=== PATIENT | female | born 1995 | race Caucasian/White ===

== ENCOUNTER 2018-03-19 17:42 | Emergency (ER) | payer BC, OTHER ==
[~2018-03-19] VITALS: Ht 167.6 cm; Wt 69.4 kg
[2018-03-19] MEDS ORDERED: LIDOCAINE 1% INJ 20 ML 20 ML VIAL ONE (17:45)
--- NOTE | 2018-03-19 18:12 | ED Upper Extremity ---
General Chief Complaint: Laceration Stated Complaint: L HAND LACERATION BETWEEN THUMB AND INDEX FINGER Nursing Triage Note: PT HAS LAC TO LEFT HAND FROM ZIP TIE. Nursing Sepsis Screen: No Definite Risk History of Present Illness Date Seen by Provider: Mar 19, 2018 Time Seen by Provider: 17:45 Initial Comments 22-year-old female presents for laceration to left hand, first webspace. She was pulling at the time when it cut her hand. Her last tetanus vaccine was 2 years ago. She denies any other injury. Patient assessed by Dr. Esposito and myself. Onset: just prior to arrival Pain/Injury Location: left hand Method of Injury: incised Allergies and Home Medications Home Medications Cephalexin 500 Mg Capsule, 500 MG PO Q8H Prescribed by: CHRISTI GREEN on 03/19/18 7834 Patient Home Medication List Home Medication List Reviewed: Yes Constitutional: no symptoms reported, see HPI All Other Systems Reviewed Negative Unless Noted: Yes Past Asgqbph-Ttgncs-Gcltsq Hx Past Med/Social Hx: Reviewed Nursing Past Med/Soc Hx Patient Social History Alcohol Use: Denies Use Recreational Drug Use: No Smoking Status: Never a Smoker Recent Foreign Travel: No Contact w/Someone Who Travel: No Recent Infectious Disease Expo: No Recent Hopitalizations: No Seasonal Allergies Seasonal Allergies: No Past Medical History Surgeries: Yes (SCOLIOSIS SPINAL FUSION) Respiratory: No Cardiac: No Neurological: No Integumentary: No Physical Exam Vital Signs Vital Signs - First Documented 03/19/18 03/19/18 17:45 18:40 Temp 99.7 Pulse 86 Resp 16 B/P (MAP) 112/66 (81) Pulse Ox 99 O2 Delivery Room Air Capillary Refill : Less Than 3 Seconds Height, Weight, BMI Height: 5'6.00" Weight: 153lbs. oz. 69.385418fe; BMI Method:Stated General Appearance: WD/WN, no apparent distress Hand: normal ROM, Left, laceration, soft tissue tenderness Neurologic/Tendon: normal sensation, normal motor functions, normal tendon functions (Resisted Flex/Ext thumb and index finger Left hand V/V. ) Neurologic/Psychiatric: alert, normal mood/affect, oriented x 3 Skin: normal color, warm/dry Procedures/Interventions Wound Location: Upper Extremities (left hand first webspace) Wound Length (cm): 1.2 Wound's Depth, Shape: superficial Wound Explored: clean Irrigated w/ Saline (ccs): 300 Betadine Prep?: Yes Anesthesia: 1% Lidocaine Volume Anesthetic (ccs): 4 Suture: Ethlion Suture Size: 5-0 Number of Sutures: 3 Sterile Dressing Applied?: Yes Progress Patient tolerated procedure well. Progress/Results/Core Measures Results/Orders Medications Given in ED Current Medications Medications Dose Ordered Sig/Pedro Route Start Time Stop Time Status Last Admin Dose Admin Lidocaine HCl 20 ml STK-MED ONCE .ROUTE 03/19/18 17:45 03/19/18 17:48 DC 03/19/18 17:45 20 ML Vital Signs/I&O 03/19/18 03/19/18 17:45 18:40 Temp 99.7 Pulse 86 76 Resp 16 16 B/P (MAP) 112/66 (81) 124/84 Pulse Ox 99 100 O2 Delivery Room Air Blood Pressure Mean: 81 Progress Progress Note : Time: 17:45 Progress Note Initial evaluation completed by myself and Dr. Esposito. Recommended suture repair. The patient agreed with this. Patient tolerated suturing without complaints. Upon completion she became pale and diaphoretic. She was given a wash rag and ice chips. Her color improved. She was taking sips of Sprite. No nausea or vomiting. 1815 patient continues to feel weak, she has not eaten crackers, she has taken Sprite and denies any nausea or vomiting. Patient requesting suckers, provided 2. 1830 patient reports to be feeling better, able to sit on side of the bed with no nausea vomiting or weakness. Ambulated with steady gait. Discharge instructions and return precautions reviewed with her. Departure Impression Primary Impression: Laceration of left hand Qualified Codes: S61.412A - Laceration without foreign body of left hand, initial encounter Disposition: HOME, SELF-CARE Condition: Improved Departure-Patient Inst. Decision time for Depature: 18:10 Referrals: NO,LOCAL PHYSICIAN (PCP/Family) Primary Care Physician Patient Instructions: Laceration Repair With Stitches (DC) Add. Discharge Instructions: Keep wound clean and dry. After 24 hours she may remove the current dressing and shower. Clean the wound with peroxide 3 times daily and keep it covered with a Band-Aid. May leave open to air, when at home, in 2-3 days. Do not immerse hand in standing water, sink, pool, hot tub, delgado, river, etc. You may shower and wash your hand with running water. Return to emergency department or go to [facility] in 7-10 days for suture removal. You may take Tylenol 650 mg or ibuprofen 600 mg alternating every 4 hours for pain. Take antibiotics as prescribed. Return to emergency department for fever greater than 101, increased pain, redness, discolored drainage, or other signs of infection to the wound. All discharge instructions reviewed with patient and/or family. Voiced understanding. Scripts Cephalexin (Keflex) 500 Mg Capsule 500 MG PO Q8H for 5 Days, #15 CAP 0 Refills Prov: CHRISTI GREEN 03/19/18 Copy Copies To 1: ROMEL MARIN MD, AMY ARNP Mar 19, 2018 18:12
[2018-03-19 18:40] VITALS: BP 124/84
[2018-03-19] MEDS ORDERED: CEPH-507 PO (18:58)
== END 2018-03-19 18:40 | disposition home or self-care (01) ==
LOC: ER 17:45
DX: S61.412A Laceration without foreign body of left hand, initial encounter (principal); W26.8XXA Contact with other sharp object(s), not elsewhere classified, initial encounter; Z98.1 Arthrodesis status
CPT/HCPCS: 12001